=== PATIENT | female | born 1980 | race Caucasian/White ===

== ENCOUNTER 2016-07-23 20:30 | Emergency (ER) | payer BC ==
[~2016-07-23] VITALS: Ht 157.5 cm; Wt 108.9 kg
[~2016-07-23 20:30] MED LIST: ACYC400T PO; ALPR0.5T8 PO; GABA-531 PO; GEMF600T3 PO; METF-303 PO; MULT-634 PO; NORCO PO; OMEP20CA10 PO; SIMV40TA5 PO
[2016-07-23 20:40] VITALS: BP_SYST 147
[2016-07-23] MEDS: HYDROcodone/ACETAMIN 7.5-325 MG TAB PO ONE (23:00)
[2016-07-24] MEDS ORDERED: MORPHINE 4 MG/ML INJ. SYRINGE ONE (00:02)
[2016-07-24] MEDS: DIPHENHYDRAMINE INJ 50 MG/ML VIAL IM ONE (00:04)
[2016-07-24] MEDS: MORPHINE SULFATE 10 MG/ML VIAL IM ONE (00:08)
[2016-07-24 00:50] VITALS: BP_SYST 138
== END 2016-07-24 00:50 | disposition home or self-care (01) ==
LOC: SED 20:30
DX: S82.831A Other fracture of upper and lower end of right fibula, initial encounter for closed fracture (principal); E11.9 Type 2 diabetes mellitus without complications; I10 Essential (primary) hypertension; E78.5 Hyperlipidemia, unspecified; Z86.718 Personal history of other venous thrombosis and embolism; Z90.49 Acquired absence of other specified parts of digestive tract; Z98.890 Other specified postprocedural states; Z79.899 Other long term (current) drug therapy; V89.2XXA Person injured in unspecified motor-vehicle accident, traffic, initial encounter; Y93.89 Activity, other specified; Y92.411 Interstate highway as the place of occurrence of the external cause; Y99.8 Other external cause status
CPT/HCPCS: 29515; 73590; 81025; 96372; 99284; J1200; J2270

== ENCOUNTER 2016-11-05 18:34 | Emergency (ER) | payer BC ==
[~2016-11-05] VITALS: Ht 157.5 cm; Wt 111.1 kg
[2016-11-05 18:40] VITALS: BP_SYST 145
[2016-11-05] MEDS ORDERED: LIP10 (18:49)
[2016-11-05] MEDS ORDERED: METO50TA7 (18:49)
[2016-11-05 19:04] LABS: BASOPHILS # (AUTO) 0.1 K/uL (0.0-0.2); BASOPHILS % (AUTO) 0.7 % (0.0-2.0); EOSINOPHILS # (AUTO) 0.1 K/uL (0.0-0.4); EOSINOPHILS % (AUTO) 1.5 % (0.0-4.0); HEMATOCRIT 35.4 % (36-48); HEMOGLOBIN 11.2 g/dL (12.0-16.0); LYMPHOCYTES # (AUTO) 2.8 K/uL (1.0-5.5); LYMPHOCYTES % (AUTO) 33.7 % (20.5-51.5); MEAN CORPUSCULAR HEMOGLOBIN 25 pg (27-31); MEAN CORPUSCULAR HGB CONC 32 % (32-36); MEAN CORPUSCULAR VOLUME 80 fL (79.0-98.0); MONOCYTES # (AUTO) 0.9 K/uL (0.0-1.0); MONOCYTES % (AUTO) 10.3 % (1.7-9.3); NEUTROPHILS # (AUTO) 4.5 K/uL (1.8-7.7); NEUTROPHILS % (AUTO) 53.8 % (40.0-70.0); PLATELET COUNT (AUTO) 310 K/uL (130-430); RED BLOOD CELL COUNT(AUTO) 4.41 MIL/uL (4.2-6.2); RED CELL DISTRIBUTION WIDTH 14.3 % (9.0-15.0); WHITE BLOOD COUNT (AUTO) 8.4 K/uL (4.8-10.8)
[2016-11-05 19:15] LABS: CREATININE 0.72 mg/dL (0.55-1.30); POTASSIUM 3.6 mmol/L (3.5-5.1)
[2016-11-05 19:19] LABS: PROTHROMBIN TIME 10.6 SECS (9.5-12.5)
[2016-11-05 19:20] LABS: ALBUMIN 3.9 g/dL (3.4-4.8); TOTAL BILIRUBIN 0.3 mg/dL (0.0-1.0)
[2016-11-05 20:10] VITALS: BP_SYST 121
== END 2016-11-05 20:10 | disposition home or self-care (01) ==
LOC: SED 18:34
DX: R07.89 Other chest pain (principal); E66.8 Other obesity; I10 Essential (primary) hypertension; E11.9 Type 2 diabetes mellitus without complications; E78.5 Hyperlipidemia, unspecified; Z68.41 Body mass index [BMI] 40.0-44.9, adult; Z86.718 Personal history of other venous thrombosis and embolism; Z79.899 Other long term (current) drug therapy
CPT/HCPCS: 36415; 71010; 80053; 82550-TC; 83880; 84484; 84703; 85025; 85379; 85610-TC; 85730-TC; 93005; 99285

== ENCOUNTER 2017-02-07 20:03 | Emergency (ER) | payer BC ==
[~2017-02-07] VITALS: Ht 152.4 cm; Wt 114.3 kg
[~2017-02-07 20:03] MED LIST changes: +LIP10; +METO50TA7
[2017-02-07 20:18] VITALS: BP_SYST 164
[2017-02-07] MEDS ORDERED: KETOROLAC TROMETHAMINE 30 MG VIAL IM ONE (21:30)
[2017-02-07 21:49] LABS: BILIRUBIN,URINE NEGATIVE (NEGATIVE); BLOOD, URINE NEGATIVE (NEGATIVE); CLARITY/URINE CLEAR (CLEAR); COLOR,URINE YELLOW (YELLOW); GLUCOSE,URINE NEGATIVE (NEGATIVE); KETONES,URINE NEGATIVE (NEGATIVE); LEUKOCYTE ESTERASE ,URINE NEGATIVE (NEGATIVE); NITRITE, URINE NEGATIVE (NEGATIVE); PROTEIN URINE NEGATIVE (NEGATIVE); UROBILINOGEN,URINE 0.2 (0.2-1.0)
[2017-02-07] MEDS ORDERED: ACETAMINOPHEN/CODEINE 300 MG-30 MG TABLET PO ONE (22:30)
[2017-02-07 23:52] VITALS: BP_SYST 148
== END 2017-02-07 23:52 | disposition home or self-care (01) ==
LOC: SED 20:03
DX: N80.0 Endometriosis of uterus (principal); E11.9 Type 2 diabetes mellitus without complications; I10 Essential (primary) hypertension; E78.5 Hyperlipidemia, unspecified; Z86.718 Personal history of other venous thrombosis and embolism; Z90.49 Acquired absence of other specified parts of digestive tract; Z79.899 Other long term (current) drug therapy
CPT/HCPCS: 74176; 81003; 81025; 96372; 99285; J1885

== ENCOUNTER 2018-06-19 00:28 | Inpatient (IN) | payer BC ==
[~2018-06-19] VITALS: Ht 157.5 cm; Wt 120.2 kg
[~2018-06-19 00:28] MED LIST changes: -GEMF600T3 PO; +GEMF600T5 PO; -METF-303 PO; +METF-379 PO
[2018-06-19 01:00] VITALS: BP_SYST 162
[2018-06-19] MEDS ORDERED: NACL 0.9% 1,000 ML IV ONE (05:00)
[2018-06-19] MEDS ORDERED: PIPERACILLIN/TAZO 3.375 GM in NS 50 ML IV ONE (05:00)
[2018-06-19] MEDS ORDERED: PIPERACILLIN/TAZOBACTAM 3.375 GM/VIAL (ZOSYN) IV ONE (05:23)
[2018-06-19 05:51] LABS: BASOPHILS # (AUTO) 0.1 K/uL (0.0-0.2); EOSINOPHILS # (AUTO) 0.1 K/uL (0.0-0.4); EOSINOPHILS % (AUTO) 0.8 % (0.0-4.0); HEMATOCRIT 38.8 % (36-48); HEMOGLOBIN 12.8 g/dL (12.0-16.0); LYMPHOCYTES # (AUTO) 0.8 K/uL (1.0-5.5); LYMPHOCYTES % (AUTO) 10.8 % (20.5-51.5); MEAN CORPUSCULAR HEMOGLOBIN 28 pg (27-31); MEAN CORPUSCULAR HGB CONC 33 % (32-36); MEAN CORPUSCULAR VOLUME 85 fL (79.0-98.0); MONOCYTES # (AUTO) 0.6 K/uL (0.0-1.0); MONOCYTES % (AUTO) 8.9 % (1.7-9.3); NEUTROPHILS # (AUTO) 5.6 K/uL (1.8-7.7); NEUTROPHILS % (AUTO) 78.5 % (40.0-70.0); PLATELET COUNT (AUTO) 264 K/uL (130-430); RED BLOOD CELL COUNT(AUTO) 4.55 MIL/uL (4.2-6.2); RED CELL DISTRIBUTION WIDTH 14.6 % (9.0-15.0); WHITE BLOOD COUNT (AUTO) 7.1 K/uL (4.8-10.8)
[2018-06-19 06:02] LABS: CALCIUM 9.5 mg/dL (8.4-11.0); CREATININE 0.7 mg/dL (0.55-1.30); POTASSIUM 3.7 mmol/L (3.5-5.1)
[2018-06-19 06:08] LABS: TOTAL BILIRUBIN 0.4 mg/dL (0.0-1.0)
[2018-06-19 06:31] LABS: BILIRUBIN,URINE NEGATIVE (NEGATIVE); BLOOD, URINE 1+ (NEGATIVE); COLOR,URINE YELLOW (YELLOW); GLUCOSE,URINE NEGATIVE (NEGATIVE); KETONES,URINE NEGATIVE (NEGATIVE); LEUKOCYTE ESTERASE ,URINE 2+ (NEGATIVE); NITRITE, URINE NEGATIVE (NEGATIVE); PROTEIN URINE NEGATIVE (NEGATIVE); UROBILINOGEN,URINE 0.2 (0.2-1.0)
[2018-06-19 06:34] LABS: CLARITY/URINE HAZY (CLEAR)
[2018-06-19 06:37] LABS: BACTERIA,URINE MODERATE /HPF (None Seen); MUCUS,URINE 1+ /LPF (None Seen); WBC,URINE 20-50 /HPF (0-3)
[2018-06-19] MEDS ORDERED: METO25TA6 PO (08:26)
[2018-06-19 08:48] VITALS: BP_SYST 161
[2018-06-19] MEDS ORDERED: OSELTAMIVIR PHOSPHATE 75 MG CAPSULE PO ONE (10:45)
[2018-06-19] MEDS ORDERED: cloNIDine HCL 0.1 MG TABLET PO PRN (11:00)
[2018-06-19] MEDS: traMADol HCL HCL 50 MG TABLET (ULTRAM) PO PRN ×2 (11:05→21:15)
[2018-06-19] MEDS: ACETAMINOPHEN 325 MG TABLET PO PRN ×3 (11:06→23:17)
[2018-06-19] MEDS: NACL 0.9% 1,000 ML IV SCH ×2 (11:07→16:24)
[2018-06-19 11:13] VITALS: BP_SYST 147
[2018-06-19] MEDS ORDERED: INSULIN REGULAR, HUMAN 100 UNITS/ML, 10 ML VIAL (novoLIN R) SUBCUT PRN (11:15)
[2018-06-19] MEDS ORDERED: DEXTROSE 50% JECT 50 ML DISP.SYRIN IVP PRN (11:15)
[2018-06-19 16:00] VITALS: BP_SYST 131
[2018-06-19 20:00] VITALS: BP_SYST 158
[2018-06-19] MEDS: OSELTAMIVIR PHOSPHATE 75 MG CAPSULE PO SCH (21:16)
[2018-06-19] MEDS: METOPROLOL TARTRATE 25 MG TABLET PO SCH (21:16)
[2018-06-20] VITALS: BP_SYST 145
[2018-06-20] MEDS: NACL 0.9% 1,000 ML IV SCH ×3 (00:51→23:43)
[2018-06-20] MEDS: ONDANSETRON HCL 4 MG/2 ML VIAL IVP PRN ×2 (03:37→08:23)
[2018-06-20 06:51] LABS: CALCIUM 8.6 mg/dL (8.4-11.0); CREATININE 0.49 mg/dL (0.55-1.30); POTASSIUM 3.8 mmol/L (3.5-5.1)
[2018-06-20 06:53] LABS: BASOPHILS % (AUTO) 0.7 % (0.0-2.0); EOSINOPHILS # (AUTO) 0.1 K/uL (0.0-0.4); EOSINOPHILS % (AUTO) 1.2 % (0.0-4.0); HEMATOCRIT 37.9 % (36-48); HEMOGLOBIN 12.4 g/dL (12.0-16.0); LYMPHOCYTES # (AUTO) 0.5 K/uL (1.0-5.5); LYMPHOCYTES % (AUTO) 9.1 % (20.5-51.5); MEAN CORPUSCULAR HEMOGLOBIN 28 pg (27-31); MEAN CORPUSCULAR HGB CONC 33 % (32-36); MEAN CORPUSCULAR VOLUME 86 fL (79.0-98.0); MONOCYTES # (AUTO) 0.9 K/uL (0.0-1.0); MONOCYTES % (AUTO) 17.7 % (1.7-9.3); NEUTROPHILS # (AUTO) 3.6 K/uL (1.8-7.7); NEUTROPHILS % (AUTO) 71.3 % (40.0-70.0); PLATELET COUNT (AUTO) 200 K/uL (130-430); RED BLOOD CELL COUNT(AUTO) 4.42 MIL/uL (4.2-6.2); RED CELL DISTRIBUTION WIDTH 14.7 % (9.0-15.0)
[2018-06-20] MEDS: ACETAMINOPHEN 325 MG TABLET PO PRN ×3 (08:14→17:44)
[2018-06-20] MEDS: OSELTAMIVIR PHOSPHATE 75 MG CAPSULE PO SCH ×2 (08:14→20:27)
[2018-06-20] MEDS: traMADol HCL HCL 50 MG TABLET (ULTRAM) PO PRN ×3 (08:14→23:43)
[2018-06-20] MEDS: METOPROLOL TARTRATE 25 MG TABLET PO SCH ×2 (08:16→20:28)
[2018-06-20 08:17] VITALS: BP_SYST 104
[2018-06-20 12:02] VITALS: BP_SYST 135
[2018-06-20] MEDS: AZITHROMYCIN 500 MG in NS 250 ML IV SCH (17:31)
[2018-06-20 17:36] VITALS: BP_SYST 132
[2018-06-20 20:30] VITALS: BP_SYST 132
[2018-06-20 22:48] VITALS: BP_SYST 125
[2018-06-21] MEDS: traMADol HCL HCL 50 MG TABLET (ULTRAM) PO PRN (06:17)
[2018-06-21 06:45] LABS: CALCIUM 7.6 mg/dL (8.4-11.0); CREATININE 0.52 mg/dL (0.55-1.30); POTASSIUM 3.7 mmol/L (3.5-5.1)
[2018-06-21 06:46] LABS: BASOPHILS % (AUTO) 0.7 % (0.0-2.0); EOSINOPHILS # (AUTO) 0.2 K/uL (0.0-0.4); EOSINOPHILS % (AUTO) 3.8 % (0.0-4.0); HEMATOCRIT 34.1 % (36-48); LYMPHOCYTES # (AUTO) 1.6 K/uL (1.0-5.5); LYMPHOCYTES % (AUTO) 39.8 % (20.5-51.5); MEAN CORPUSCULAR HEMOGLOBIN 28 pg (27-31); MEAN CORPUSCULAR HGB CONC 32 % (32-36); MEAN CORPUSCULAR VOLUME 87 fL (79.0-98.0); MONOCYTES # (AUTO) 0.7 K/uL (0.0-1.0); MONOCYTES % (AUTO) 18.3 % (1.7-9.3); NEUTROPHILS # (AUTO) 1.5 K/uL (1.8-7.7); NEUTROPHILS % (AUTO) 37.4 % (40.0-70.0); PLATELET COUNT (AUTO) 181 K/uL (130-430); RED BLOOD CELL COUNT(AUTO) 3.93 MIL/uL (4.2-6.2); RED CELL DISTRIBUTION WIDTH 14.6 % (9.0-15.0); WHITE BLOOD COUNT (AUTO) 3.9 K/uL (4.8-10.8)
[2018-06-21 08:03] VITALS: BP_SYST 132
[2018-06-21] MEDS: OSELTAMIVIR PHOSPHATE 75 MG CAPSULE PO SCH ×2 (09:09→20:05)
[2018-06-21] MEDS: METOPROLOL TARTRATE 25 MG TABLET PO SCH ×2 (09:09→20:05)
[2018-06-21] MEDS: NACL 0.9% 1,000 ML IV SCH ×2 (09:09→20:13)
[2018-06-21 11:20] VITALS: BP_SYST 124
[2018-06-21] MEDS: AZITHROMYCIN 500 MG in NS 250 ML IV SCH (14:39)
[2018-06-21] MEDS ORDERED: ALBUTEROL SULFATE 0.083% 2.5 MG/3 ML VIAL.NEB INH PRN (14:45)
[2018-06-21 15:30] VITALS: BP_SYST 125
[2018-06-21] MEDS ORDERED: IPRATROPIUM/ALBUTEROL SULFATE 3 ML AMPUL.NEB (DUONEB) INH PRN (16:15)
[2018-06-21] MEDS ORDERED: cefTRIAXone 1 GM in D5W 50 ML IV SCH (16:30)
[2018-06-21] MEDS ORDERED: IPRATROPIUM/ALBUTEROL SULFATE 3 ML AMPUL.NEB (DUONEB) INH ONE (16:45)
[2018-06-21 20:00] VITALS: BP_SYST 143
[2018-06-21] MEDS: ACETAMINOPHEN 325 MG TABLET PO PRN (20:06)
[2018-06-21] MEDS: IPRATROPIUM/ALBUTEROL SULFATE 3 ML AMPUL.NEB (DUONEB) INH SCH (22:28)
[2018-06-21 22:46] LABS: BILIRUBIN,URINE NEGATIVE (NEGATIVE); BLOOD, URINE NEGATIVE (NEGATIVE); CLARITY/URINE CLEAR (CLEAR); COLOR,URINE YELLOW (YELLOW); GLUCOSE,URINE NEGATIVE (NEGATIVE); KETONES,URINE NEGATIVE (NEGATIVE); LEUKOCYTE ESTERASE ,URINE NEGATIVE (NEGATIVE); NITRITE, URINE NEGATIVE (NEGATIVE); PROTEIN URINE NEGATIVE (NEGATIVE); UROBILINOGEN,URINE 0.2 (0.2-1.0)
[2018-06-22 00:33] VITALS: BP_SYST 140
[2018-06-22] MEDS: ACETAMINOPHEN 325 MG TABLET PO PRN (06:01)
[2018-06-22 06:42] LABS: CALCIUM 8.6 mg/dL (8.4-11.0); CREATININE 0.43 mg/dL (0.55-1.30); POTASSIUM 3.6 mmol/L (3.5-5.1)
[2018-06-22 07:12] LABS: BASOPHILS % (AUTO) 0.5 % (0.0-2.0); EOSINOPHILS # (AUTO) 0.1 K/uL (0.0-0.4); HEMATOCRIT 36.3 % (36-48); HEMOGLOBIN 11.9 g/dL (12.0-16.0); LYMPHOCYTES # (AUTO) 1.9 K/uL (1.0-5.5); LYMPHOCYTES % (AUTO) 42.4 % (20.5-51.5); MEAN CORPUSCULAR HEMOGLOBIN 28 pg (27-31); MEAN CORPUSCULAR HGB CONC 33 % (32-36); MEAN CORPUSCULAR VOLUME 86 fL (79.0-98.0); MONOCYTES # (AUTO) 0.5 K/uL (0.0-1.0); MONOCYTES % (AUTO) 11.6 % (1.7-9.3); NEUTROPHILS # (AUTO) 1.9 K/uL (1.8-7.7); NEUTROPHILS % (AUTO) 42.5 % (40.0-70.0); PLATELET COUNT (AUTO) 212 K/uL (130-430); RED BLOOD CELL COUNT(AUTO) 4.22 MIL/uL (4.2-6.2); RED CELL DISTRIBUTION WIDTH 14.7 % (9.0-15.0); WHITE BLOOD COUNT (AUTO) 4.4 K/uL (4.8-10.8)
[2018-06-22] MEDS: traMADol HCL HCL 50 MG TABLET (ULTRAM) PO PRN (07:51)
[2018-06-22] MEDS: IPRATROPIUM/ALBUTEROL SULFATE 3 ML AMPUL.NEB (DUONEB) INH SCH (07:54)
[2018-06-22 08:05] VITALS: BP_SYST 136
[2018-06-22 08:06] VITALS: BP_SYST 136
[2018-06-22] MEDS: OSELTAMIVIR PHOSPHATE 75 MG CAPSULE PO SCH (08:29)
[2018-06-22] MEDS: METOPROLOL TARTRATE 25 MG TABLET PO SCH (08:29)
[2018-06-22] MEDS: NACL 0.9% 1,000 ML IV SCH (11:41)
[2018-06-22 11:42] VITALS: BP_SYST 156
[2018-06-22] MEDS ORDERED: OSEL75CA PO (12:29)
[2018-06-22] MEDS ORDERED: ALBU8.5H8 INH (12:31)
[2018-06-22 12:41] VITALS: BP_SYST 156
== END 2018-06-22 13:15 | disposition home or self-care (01) | DRG 153 ==
LOC: SED 00:28 → STU 08:10 → SMU 08:15 → STU 23:12 → SMU 06-20 15:15
PROVIDERS: ADMIT Internal Medicine; ATTEND Internal Medicine
DX: J11.1 Influenza due to unidentified influenza virus with other respiratory manifestations (principal); N39.0 Urinary tract infection, site not specified; Z68.42 Body mass index [BMI] 45.0-49.9, adult; E87.1 Hypo-osmolality and hyponatremia; E11.9 Type 2 diabetes mellitus without complications; J18.9 Pneumonia, unspecified organism; I10 Essential (primary) hypertension; E66.9 Obesity, unspecified; E78.5 Hyperlipidemia, unspecified; Z86.718 Personal history of other venous thrombosis and embolism; Z90.49 Acquired absence of other specified parts of digestive tract; Z90.710 Acquired absence of both cervix and uterus
CPT/HCPCS: 36415; 71045; 80048; 80053; 81000-TC; 81003; 82962; 83605; 85025; 86710; 87040-TC; 87086; 93005; 94640; 94760; 96365; 99285; G0378; G9035; J0456; J0696; J1815; J2405; J2543; J7030; J7050; J7060; J7613; J7620

== ENCOUNTER 2019-01-01 16:28 | Emergency (ER) | payer BC ==
[~2019-01-01] VITALS: Ht 160 cm; Wt 117.9 kg
[~2019-01-01 16:28] MED LIST changes: -ACYC400T PO; +ALBU8.5H8 INH; -ALPR0.5T8 PO; -GABA-531 PO; -GEMF600T5 PO; -LIP10; -METF-379 PO; +METO25TA6 PO; -METO50TA7; -MULT-634 PO; -NORCO PO; -OMEP20CA10 PO; +OSEL75CA PO; -SIMV40TA5 PO
--- NOTE | 2019-01-01 16:28 | NUR ---
BROUGHT BACK TO BED #5 AND TRIAGED. REPORT GIVEN TO PILY
[2019-01-01 16:30] VITALS: BP_SYST 153
--- NOTE | 2019-01-01 17:11 | NUR ---
DR MCNULTY AT BEDSIDE FOR EVALUATION
[2019-01-01] MEDS ORDERED: KETOROLAC TROMETHAMINE 60 MG/2 ML VIAL IM ONE (17:15)
[2019-01-01 18:11] VITALS: BP_SYST 146
--- NOTE | 2019-01-01 18:11 | NUR ---
Patient given written and verbal discharge instructions and verbalizes understanding. ER MD Haider discussed with patient the results and treatment provided. Patient in stable condition. ID arm band removed. Rx of Irwin Villafuerte given. Patient educated on pain management and to follow up with PMD. Pain Scale 0. Opportunity for questions provided and answered. Medication side effect fact sheet provided.
== END 2019-01-01 18:11 | disposition home or self-care (01) ==
LOC: SED 16:28
DX: R10.30 Lower abdominal pain, unspecified (principal); R19.7 Diarrhea, unspecified; I10 Essential (primary) hypertension; E11.9 Type 2 diabetes mellitus without complications; Z90.49 Acquired absence of other specified parts of digestive tract; Z79.899 Other long term (current) drug therapy
CPT/HCPCS: 96372; 99283; J1885